=== PATIENT | male | born 1970 | race Caucasian/White ===

== ENCOUNTER 2017-01-08 16:07 | Emergency (ER) | payer SELFPAY ==
[~2017-01-08] VITALS: Ht 167.6 cm; Wt 117.9 kg
[2017-01-08 16:15] VITALS: BP 188/120
== END 2017-01-08 16:36 | disposition left against medical advice (07) ==
LOC: ER 16:36
DX: K08.89 Other specified disorders of teeth and supporting structures (principal); Z53.21 Procedure and treatment not carried out due to patient leaving prior to being seen by health care provider

== ENCOUNTER 2017-11-30 11:36 | Emergency (ER) | payer SELFPAY ==
[2017-11-30] MEDS: HYDROcodone/APAP 10/325 1 TAB TABLET PO (12:42)
== END 2017-11-30 13:22 | disposition home or self-care (01) ==
LOC: ER 11:36
DX: S80.01XA Contusion of right knee, initial encounter (principal); W18.39XA Other fall on same level, initial encounter; Y93.89 Activity, other specified; Y92.89 Other specified places as the place of occurrence of the external cause; Y99.8 Other external cause status
CPT/HCPCS: 73564; 73590; 99284